=== PATIENT | female | born 1955 | race Caucasian/White ===

== ENCOUNTER 2024-09-27 06:28 | Day surgery (SDC) | payer MEDICARE, SELFPAY ==
[2024-09-23 14:00] VITALS: BMI 38.2
[2024-09-27 06:35] VITALS: BMI 37.8
[2024-09-27 07:09] VITALS: BP 149/70; PULSE 66; RESP 16; TEMP 36.7; O2SAT 99
[2024-09-27] MEDS: Lactated Ringers 1,000 ML 80 ML IVCONT (07:12)
--- NOTE | 2024-09-27 07:36 | P.HPSUR_ITS ---
Pre-Procedural Eval Section A - 24 Hr Update-Section A only Date of Service: 09/27/24 Section B - Complete if H&P > 30 days Chief Complaint: Encounter for screening for malignant neoplasm of Details of Present Illness: see H*P no changes Relevant Family History (Specify if Yes): No Relevant Social History: None Present Medications: see Short Stay Collaborative assessment Medical History: No relevant PMH History of Previous Operations: No relevant previous surgery Allergies: Allergies Allergy/AdvReac Type Severity Reaction Status Date / Time No Known Allergies Allergy Verified 09/23/24 13:55 Review of Systems Sugical H&P ROS: Negative: Constitution, Cardiovascular, Respiratory, Neurological, Psychiatric, Hem-Onc, Allergic/Immunologic, Gastrointestinal, Genitourinary, Musculoskeletal, Integumentary, Endocrine and Eyes/Ears/No se/Throat Exam Surgical H&P Exam: Normal: HEENT, Normal: Heart, Normal: Lungs, Normal: Extremities, Normal: Abdomen, Normal: Skin and Normal: Neurological Plan Diagnosis/Plan: Unchanged I have reviewed the history and physical and performed a pertinent physical examination on my patient. No changes have occurred unless specified. Time Spent With Patient Time: Total time managing care of this patient today ____ minutes.
[2024-09-27 08:08] VITALS: BP 108/65; PULSE 76; RESP 16; TEMP 36.1; O2SAT 99
[2024-09-27 08:23] VITALS: BP 132/78; PULSE 66; RESP 18; TEMP 36.1; O2SAT 100
--- NOTE | 2024-09-27 08:34 | PM.OP ---
Brief Operative Note Date of Service: 09/27/24 Pre-op diagnosis: screening Post-op diagnosis: same Procedure: colonoscopy Surgeon: Jesse Schultz MD Anesthesia: MAC Was an Fish Frog Or Oyster Farmer used for this Procedure?: No Estimated blood loss (mL): 0 Pathology: other Condition: stable
--- NOTE | 2024-09-27 09:08 | OP_ITS ---
DATE OF SERVICE: 09/27/2024 SURGEON: Jesse Schultz MD INDICATIONS: Colon cancer screening and prior history of adenomatous colon polyps. PREOPERATIVE DIAGNOSIS: POSTOPERATIVE DIAGNOSIS: PROCEDURE PERFORMED: Colonoscopy to the terminal ileum with snare polypectomy and biopsy. ESTIMATED BLOOD LOSS: COMPLICATIONS: ANESTHESIA: Medications, monitored anesthesia care. ASSISTANTS: SPECIMENS: DESCRIPTION OF PROCEDURE: A history and physical performed. The risks and benefits of the procedure were explained to the patient. Informed consent was obtained. The patient was placed in the left lateral decubitus position. A digital rectal exam was performed and was found to be normal. The Olympus pediatric video colonoscope was introduced into the rectum and advanced to the cecum. The cecum was identified by transillumination, palpation, and identification of ileocecal valve. Examination was performed. The scope was removed. She tolerated the procedure well and was taken to recovery area in stable condition. FINDINGS: The terminal ileum was examined and appeared normal. The visualized colonic mucosa was normal. The quality of the prep was good. Multiple polyps were identified. These were removed with a combination of snare polypectomy and biopsy forceps. The largest measured approximately 8 mm. These were located in the right colon, 40 cm, 35 cm, 20 cm, and in the rectum. Retroflexed examination was normal. IMPRESSION: Colon polyps. RECOMMENDATION: Follow up the biopsy results. MD MANUELA Ann/MIKAYLAL / [id number]
--- NOTE | 2024-09-27 09:18 | P.CONAN_ITS ---
HPI - Anesthesia Eval Consult details Narrative: colon [facility] Past Medical History Medical History Basal cell carcinoma Tubular adenoma Cataracts, bilateral Anxiety HTN (hypertension) Family History Family history of problems with anesthesia: No Surgical History Surgical History Hx of umbilical hernia repair Hx of bilateral inguinal hernia repair H/O colonoscopy History of Problems with Anesthesia: No Social History Social History Patient Tobacco Use Status: Never used Tobacco Use of substances other than those prescribed or required for medical reasons: No Advance Directives: No Advance Directives Information Provided: Yes Recently lost weight without trying: No Nutrition Risks: No Nutritional Risk Meds Allergies Allergy/AdvReac Type Severity Reaction Status Date / Time No Known Allergies Allergy Verified 09/23/24 13:55 Home Medications ?Medication ?Instructions ?Recorded ?Confirmed ?Last Taken ?Type buspirone 5 mg tablet 5 mg PO DAILY 09/23/24 09/23/24 Unknown History ramipril 10 mg capsule 10 mg PO DAILY 09/23/24 09/23/24 Unknown History venlafaxine 37.5 mg 37.5 mg PO DAILY 09/23/24 09/23/24 Unknown History tablet,extended release 24 hr Exam Height,Weight and Vital Signs: Height 5 ft 1 in Weight 90.718 kg Last Vital Signs Temp 97 F 09/27/24 08:23 Pulse 66 09/27/24 08:23 Resp 18 09/27/24 08:23 BP 132/78 09/27/24 08:23 Pulse Ox 100 09/27/24 08:23 O2 Del Method Room Air 09/27/24 08:23 Airway Mallampati Class: II TM Dist: >3cm Neck ROM: Full Heart: rrr Lungs: cta Assessment and Plan Assessment Anesthesia Assessment: Anesthesia Plan Discussed Final Anesthetic Review Family History of Problems with Anesthesia: No History of Problems with Anesthesia: No NPO: Yes ASA Class: II Final Preanesthetic Review: No Changes in Pt Med Stat, Meds/Allgs Chart Reviewed and Consent Obtained/Reviewed Patient Risk: Low Procedure Risk: Low Anesthetic Plan Anesthetic Plan: MAC: Disposition: Standard PACU
== END 2024-09-27 08:54 | disposition home or self-care (01) ==
PROVIDERS: Visit Provider Internal Medicine Gastroenterology
PROC: 0DJD8ZZ Inspection of Lower Intestinal Tract, Via Natural or Artificial Opening Endoscopic (ICD-10-PCS; CPT 45378; principal; 2024-09-27 07:30)
DX: Z12.11 Encounter for screening for malignant neoplasm of colon (principal); Z86.0101 Personal history of adenomatous and serrated colon polyps; D12.2 Benign neoplasm of ascending colon; D12.5 Benign neoplasm of sigmoid colon; K62.1 Rectal polyp; I10 Essential (primary) hypertension; F41.9 Anxiety disorder, unspecified; Z79.82 Long term (current) use of aspirin; Z79.899 Other long term (current) drug therapy; Z98.890 Other specified postprocedural states
CPT/HCPCS: 45385; 45380; 88305; J2704